=== PATIENT | male | born 1945 ===

== ENCOUNTER 2024-02-16 12:41 | Inpatient (IN) | payer OTHER ==
[2024-02-16] VITALS (20 sets, daily range): BP systolic 94–136; BP diastolic 57–82
[~2024-02-16] VITALS: Ht 188 cm; Wt 102.4 kg
[~2024-02-16 12:41] MED LIST: OXYACE5T PO
[2024-02-16] MEDS ORDERED: CeFAZolin Sodium 2,000 MG in NS 100 ML IV SCH (12:45)
[2024-02-16] MEDS ORDERED: Lactated Ringer's 1,000 ML IV SCH (12:45)
[2024-02-16] MEDS ORDERED: Bupivacaine 0.5% HCl 5 MG/ML 30MLVIAL ONE (13:01)
[2024-02-16] MEDS ORDERED: Lidocaine HCl 1% 30 ML SDV ONE (13:01)
[2024-02-16] MEDS ORDERED: PRED20 PO (13:07)
[2024-02-16] MEDS ORDERED: TRAZ50 PO (13:08)
[2024-02-16] MEDS ORDERED: HYDR1TAB94 PO (13:09)
[2024-02-16] MEDS ORDERED: Hydrocortisone Sod Succinate 100 MG Vial IV SCH (13:25)
[2024-02-16] MEDS ORDERED: Acetaminophen 500 MG Tab PO SCH (13:25)
[2024-02-16 14:13] LABS: Bun/Creatinine Ratio 28.8 (12.0-20.0); Calcium, Blood 8.8 mg/dL (8.5-10.1); Creatinine, Blood 0.94 mg/dL (0.60-1.20); Potassium, Blood 4.4 mmol/L (3.5-5.5)
[2024-02-16] MEDS ORDERED: Metoprolol Tartrate 5 ML IV ONE ×2 (14:23→14:55)
--- NOTE | 2024-02-16 15:28 | NUR ---
PT CAME IN AT 1520, DR JAIME AND DR NEWSOME IN PACU WITH PT, CARE HAS NOT BEEN RELEASED TO ME YET, I AM ASSISTING WITH EKG.
[2024-02-16] MEDS ORDERED: Diltiazem HCl 5 MG / ML 10ML Vial IV STA (15:42)
[2024-02-16] MEDS ORDERED: Acetaminophen 325 MG TABLET PO PRN (15:45)
--- NOTE | 2024-02-16 15:47 | NUR ---
RN ASSUMED CARE OF PT IN PACU AT 1535. HOSPITALIST CAME IN, CONSULTED DR COLLINS AND DR JAY, DECISION TO FOR PT TO STAY IN PCU THROUGHTOUT THE NIGHT TO BE MONITORED AND POSSIBILY START A CARTAZEM DRIP IF NEED BE.
[2024-02-16] MEDS ORDERED: NS 1,000 ML IV SCH (16:00)
--- NOTE | 2024-02-16 16:30 | NUR ---
ARRIVAL TO PCU PT TRANSFERRED FROM DAY SURGERY TO PCU 2 AT APPROXIMATELY 1630. PT ON RA, SPO2 >90%, IV TO R WRIST PATENT, TUBING CHANGED THERE WAS PROPOFOL IN THE LINE. VSS, AFEBRILE, LUNGS CLEAR. PT ABLE TO PROVIDE ADMISSION HISTORY. BED ALARM ON FOR SAFETY. PT IS RESTING COMFORTABLY, CALL LIGHT WITHIN REACH, BREATHING EVEN AND UNLABORED.
[2024-02-17] VITALS (9 sets, daily range): BP systolic 109–152; BP diastolic 66–88
--- NOTE | 2024-02-17 02:57 | NUR ---
1915 Assumed care of pt, beside shift report completed. Shift plan of care reviewed with pt, all questions answered. Pt with uneventful shift. No significant ectopy noted on tele. Heart rhythm has remained Sinus Jules/Sinus Rhythm this shift. Son in earlier in shift to visit. Discussed plan of care, all questions answered. VSS throughout shift and assessment stable. Please see full assessment for addtional details. No further complaints or concerns noted at this time, will continue to monitor.
[2024-02-17 04:10] LABS: Bun/Creatinine Ratio 30.4 (12.0-20.0); Calcium, Blood 8.1 mg/dL (8.5-10.1); Creatinine, Blood 0.86 mg/dL (0.60-1.20); Potassium, Blood 4.1 mmol/L (3.5-5.5)
--- NOTE | 2024-02-17 08:23 | NUR ---
RN NOTIFIED DR. BO BY VOICEMAIL OF PATIENT'S CONVERSION TO WHAT APPEARS TO BE AFIB [address] WHICH LASTED ABOUT ONE MINUTE THEN BACK TO NSR AT 79 BPM. PATIENT DENIED CP, SOB OR PALPITATIONS. DR. BO CALLED BACK AND SPOKE WITH RN OVER THE PHONE AT 08:28
[2024-02-17] MEDS ORDERED: Metoprolol Tartrate 25 MG Tab PO SCH ×2 (09:00→21:00)
[2024-02-17] MEDS ORDERED: Heparin Sodium,Porcine 5,000 UNIT/0.5 ML SDV SC SCH (09:00)
--- NOTE | 2024-02-17 09:58 | NUR ---
PATIENT IS AWAKE IN BED, FAMILY AT BEDSIDE. UPDATE GIVEN TO THE FAMILY BY RN. MEDICATIONS ADMINISTERED PER EMAR. AT 0930 HR INCREASED TO 145 BPM, NO REPORTS OF SOB, CP OR LIGHTHEADEDNESS. AT 0950 HR INCREASED TO 140 BPM, NO REPORTS OF SOB, CP OR LIGHTHEADEDNESS. BOTH TIMES, HR ONLY SUSTAINED AT PEAK RATE FOR 10 SECONDS THEN STARTED TO DECREASE AND BACK DOWN TO 98 BPM AT THIS TIME. PATIENT C/O FEELING TIRED.
[2024-02-17] MEDS ORDERED: HYDROcodone 5-APAP 325 TAB PO PRN (10:50)
[2024-02-17] MEDS ORDERED: PredniSONE 20 MG Tab PO SCH (11:00)
[2024-02-17] MEDS ORDERED: Calcium Carbonate 500 MG Tab Chew PO PRN (13:35)
[2024-02-17] MEDS ORDERED: HyDROXyzine HCl 10 MG Tab PO PRN (15:25)
[2024-02-17] MEDS ORDERED: TraZODone HCl 50 MG Tab PO SCH (21:00)
[2024-02-18 03:05] VITALS: BP 113/61
--- NOTE | 2024-02-18 06:17 | NUR ---
1915 Assumed care of patient, bedside report completed. Shift plan of care reviewed with pt, all questions answered. Pt with another night of poor quality and sporadic sleep. Although with multiple assessements pt is alert and oriented X4, throughout the night he is impulsive sitting at edge of bed, removing tele leads and taking off gown. When asked why pt reports he does not believe he is doing it and that they are "falling off." Bed alarm in use and pt is easily re directable. Pt given increased metoprolol dose starting this PM, with good results. Pt had been having very frequent episodes of sustained HR over 120s. From approximately 2300 on HR has become more stable, elevated HR episodes occuring only occasionally at this time and HR low 52-58 consistenly overnight. Please see full assessment for additional details. No further complaints or concerns at this time, will continue to monitor.
[2024-02-18 08:39] VITALS: BP 128/65
[2024-02-18] MEDS ORDERED: METO25 PO (09:55)
--- NOTE | 2024-02-18 10:38 | NUR ---
ASSUMED CARE OF PT AT 0700 THIS AM. PT HAS NO COMPLAINTS. ONE RUN OF HR >130 NOTED ON TELEMETRY, PT ASYMPTOMATIC. DR BO IN TO SEE PT, DISCHARGE ORDERS PLACED. ZIO PATCH PLACED PRIOR TO DISCHARGE. PT ABLE TO AMBULATE IN ROOM WITH CANE. DISCHARGE TEACHING AND INSTRUCTIONS REVIEWED WITH PT AND HIS DTR AT BEDSIDE, NO QUESTIONS OR CONCERNS AT THIS TIME. MEDICATION LIST AND FOLLOW UP APPOINTMENTS REVIEWED. TELE AND IV REMOVED, PT DISCHARGED WITH ALL HIS BELONGINGS IN THE CARE OF HIS DTR.
== END 2024-02-18 10:18 | disposition home or self-care (01) | DRG 982 ==
LOC: ORD 12:41 → ORSCMMR 12:45 → ORD 16:18 → PCU 16:19
PROVIDERS: Student in an Organized Health Care Education/Training Program; Surgery; ADMIT Internal Medicine
PROC: 02HV33Z Insertion of Infusion Device into Superior Vena Cava, Percutaneous Approach (ICD-10-PCS; 2024-02-16)
PROC: B548ZZA Ultrasonography of Superior Vena Cava, Guidance (ICD-10-PCS; 2024-02-16)
PROC: 0JH60WZ Insertion of Totally Implantable Vascular Access Device into Chest Subcutaneous Tissue and Fascia, Open Approach (ICD-10-PCS; principal; 2024-02-16 13:00)
DX: I47.10 Supraventricular tachycardia, unspecified (principal); C83.30 Diffuse large B-cell lymphoma, unspecified site; I10 Essential (primary) hypertension; E78.5 Hyperlipidemia, unspecified; I95.89 Other hypotension; R73.03 Prediabetes; Z98.890 Other specified postprocedural states; Z87.891 Personal history of nicotine dependence; Z79.891 Long term (current) use of opiate analgesic; Z79.899 Other long term (current) drug therapy
CPT/HCPCS: 36415; 77001; 80048; 84484; 93246; 96360; 96361; 96372; A9270; C1788; C8929; G0378; J0690; J1642; J1644; J1720; J7030; J7120; J7512; Q9957